=== PATIENT | female | born 1995 | race Caucasian/White ===

== ENCOUNTER 2018-04-01 06:15 | Day surgery (SDC) | payer SELFPAY ==
[2018-03-20 15:28] VITALS: BMI 26.4
[2018-04-01] MEDS ORDERED: LIDOCAINE 1%/EPI 1:100000 (20 ML MULTI DOSE VIAL) ONE (07:08)
[2018-04-01] MEDS ORDERED: OXYMETAZOLINE 0.05% NASAL SOLUTION 15 ML BOTTLE NS ONE (07:08)
[2018-04-01] MEDS ORDERED: ROCURONIUM BROMIDE 50 MG/5 ML VIAL ONE (07:40)
[2018-04-01] MEDS ORDERED: MIDAZOLAM HCL 2 MG/2 ML SINGLE DOSE VIAL ONE (07:40)
[2018-04-01] MEDS ORDERED: PROPOFOL 20 ML ONE (07:40)
[2018-04-01] MEDS ORDERED: LIDOCAINE HCL/PF 2% SDV 5ML VIAL ONE (07:44)
[2018-04-01] MEDS ORDERED: oxyCODONE HCL 5 MG TABLET PO PRN ×3 (07:54→12:14)
[2018-04-01] MEDS ORDERED: PROMETHAZINE HCL 25 MG/1 ML VIAL IVPB PRN (07:54)
[2018-04-01] MEDS ORDERED: ONDANSETRON 4 MG/2 ML VIAL IVPUSH PRN (07:54)
[2018-04-01] MEDS ORDERED: LACTATED RINGERS SOLUTION 1,000 ML IV SCH ×2 (08:00→12:15)
[2018-04-01] MEDS ORDERED: ceFAZolin SODIUM 1 GM VIAL ONE (08:15)
[2018-04-01] MEDS ORDERED: SODIUM CHLORIDE 0.9% P/F 10 ML VIAL IJ ONE (08:15)
[2018-04-01] MEDS ORDERED: ONDANSETRON 4 MG/2 ML VIAL ONE ×2 (08:17→11:09)
[2018-04-01] MEDS ORDERED: DEXAMETHASONE SOD PHOSPHATE 4 MG/1 ML VIAL ONE ×2 (08:17→11:09)
[2018-04-01] MEDS ORDERED: LIDOCAINE 1%/EPI 1:100000 (50 ML MULTI DOSE VIAL) INF ONE (09:04)
[2018-04-01] MEDS ORDERED: GLYCOPYRROLATE 0.2 MG/1 ML VIAL ONE (11:10)
[2018-04-01] MEDS ORDERED: NEOSTIGMINE METHYLSULFATE 0.5 MG/ML - 10 ML MDV ONE (11:10)
[2018-04-01] MEDS ORDERED: BACITRACIN 15 GM TUBE TOPICAL OINTMENT TP ONE (11:30)
[2018-04-01] MEDS ORDERED: NITROGLYCERIN 2% OINTMENT - 1GM PACKET TD ONE (11:52)
[2018-04-01] MEDS ORDERED: ACETAMINOPHEN 1000 MG/100 ML VIAL (NON FORMULARY) IVPB ONE (12:09)
[2018-04-01] MEDS ORDERED: ONDANSETRON 4 MG/2 ML VIAL IVPB PRN (12:14)
--- NOTE | 2018-04-01 12:17 | OP ---
Operative Note - Note: Operative Date: 04/01/18 Pre-Operative Diagnosis: nasal deformity Operation: septorhinoplasty Post-Operative Diagnosis: Same as Pre-op Surgeon: Clemente Miller Anesthesia: General
[2018-04-01 14:00] VITALS: TEMP 97.5
[2018-04-01 14:43] VITALS: BP 108/72; PULSE 76
--- NOTE | 2018-04-01 15:47 | OP ---
DATE OF OPERATION: 04/01/2018 TITLE OF PROCEDURE: Rhinoplasty with septoplasty. 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 Patient was counseled on all risks, benefits, and alternatives to the procedure, understands and agrees to proceed. She is marked in the holding area. We discussed the limitations of the operation. She is awake and aware of the incisions resulting in scars. A g of Ancef was given preoperatively. Patient was brought into the operating room and placed in supine position. All pressure points were carefully padded. Sequential compression stockings were applied. She was then given anesthesia. She was prepared in the following way, the septal mucosa was injected, as well as the parts of the internal nasal lining are injected with a total of 10 mL of 1% lidocaine 1:100,000 epinephrine. An additional 8 mL is used on the skin and subcutaneous tissue over the nose. After which each nostril was packed with Afrin-soaked half-inch cottonoids. Patient was then prepped and draped in standard surgical fashion. A throat pack was placed. Timeout was called. Patient, procedure, site, and side were verified. The Afrin-soaked pledgets were removed. At this point, a transcolumellar incision was made this was connected to the bilateral rimming incisions at the level of the caudal margin of the lower lateral cartilage. These are connected, and the lower lateral cartilage complex is dissected on the cartilages leaving all fiber fatty tissue on the skin flap. Dissection was then carried to the level of the dorsum where careful sharp dissection was performed to the level of the nasal bone. At this point, the dissection was continued in a subperiosteal plane. Once this dorsal exposure was performed, minimal dorsal rasping is performed just to smooth any preexisting irregularities. The septum is then accessed. The tip cartilages are retracted laterally bilaterally. The interior nasal septal angle was identified. The mucoperichondrial plane is created, and mucoperichondrial flaps are elevated on each of the right and left side dissecting the septum which is clearly visible and from the surrounding structures. A very minimal septal dorsal trim is performed just for smoothness, but no significant reduction is performed. A caudal septal excision of a 2-mm wedge, which was creating an infratip hanging columellar is resected. After this with septum fully exposed, a submucosal resection of the quadrangular cartilage is performed leaving 1.5 cm rim strips for an L strut. This cartilage is prepared and preserved for use as a graft. The cartilage is then created as a left unilateral recording studio setup worker graft to treat the patient's left medial vault collapse as well as straighten the residual septum. A series of 5-0 Prolene mattress sutures to the septum are performed securing this cartilage in position and straightening the appearance of the septum. Please note that prior to securing in the recording studio setup worker graft, both medial and lateral osteotomies are performed. I dictated out of sequence. Additional lidocaine is injected into the subperiosteal tunnels. Lateral pyriform aperture incisions are made on either side. Through the existing dorsal exposure, a medial osteotomy was performed with a double guarded 8-mm straight osteotome on either side of the bony septum. After this was performed using a low-to-low technique with a curved 4-mm single guarded osteotome on each side of the pyriform aperture, bilateral infractures are performed. These are nicely mobilized into the midline. At this point, it is determined that the recording studio setup worker graft is still required and the recording studio setup worker graft is placed as it was previously described. Attention is then directed towards the tip complex. Bilateral cephalic trim of the lower lateral cartilage is performed leaving 8-mm rim strips bilaterally. A series of tip sutures are performed to recreate and redefine the tip including dome spanning sutures with 5-0 PDS suture. A columellar strut is then placed in between the medial crura. It is secured with a mattressed 5-0 PDS suture. The deep fibrous tissue over the tip is also sutured to its new elevated position on the caudal septum. Attention is made to not further project the tip. However, treatment of the hanging columellar and hanging tip complex are treated with this suture. This is a 4-0 Prolene suture buried deep within the soft tissues of the tip. At the completion of this wounds were copiously irrigated, hemostasis was achieved, and with the skin redraped an excellent esthetic contour is noted. A closure was then performed of the trans-columellar incision with a series of interrupted 6-0 nylon suture. The rimming incisions were closed with a series of interrupted 5-0 chromic gut suture. Internal nasal silastic splints were placed on either side of septum. The septum was also inspected and found to be perfectly intact without any mucosal rents. The silastic septal splint is secured with a 4-0 Prolene suture loosely tied and left long for removal in the office. A [place]hur splint was then applied to the dorsum. The tip is pink and viable at the end of the procedure. The throat pack was removed. Mustache dressing is applied. Bacitracin is placed to the incisions. Patient awoken from anesthesia and transferred to recovery without complication. Please note that in the very beginning of the procedure, bilateral outfracture of the inferior turbinates is performed without any mucosal resection. MONICA NICHOLAS M.D. [id number]
== END 2018-04-01 14:30 | disposition home or self-care (01) ==
LOC: FASU 06:15
PROVIDERS: ATTEND Plastic Surgery
PROC: 090K0ZZ Alteration of Nasal Mucosa and Soft Tissue, Open Approach (ICD-10-PCS; principal; 2018-04-01 08:00)
DX: Z41.1 Encounter for cosmetic surgery (principal); J34.2 Deviated nasal septum; J34.3 Hypertrophy of nasal turbinates; M95.0 Acquired deformity of nose; J34.89 Other specified disorders of nose and nasal sinuses
CPT/HCPCS: 84703; 94760; J0131